=== PATIENT | female | born 1995 | race African-American/Black ===

== ENCOUNTER 2022-02-25 14:10 | Emergency (ER) | payer OTHER ==
[2022-02-25 14:24] VITALS: PULSE 92; RESP 18; TEMP 98.8
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
[2022-02-25 15:28] LABS: Amphetamine Screen,Urine Not Detected (NotDetected); Barbiturate Screen,Urine Not Detected (NotDetected); Benzodiazepines Screen,Urine Not Detected (NotDetected); Cocaine Screen,Urine Not Detected (NotDetected); Methadone Screen, Urine Not Detected (NotDetected); Opiate Screen,Urine Not Detected (NotDetected); Oxycodone Screen, Urine Not Detected (NotDetected); Phencyclidine Screen,Urine Not Detected (NotDetected); Tricyclic Antidepressant,Urine Not Detected (NotDetected); Urn Cannabinoid Scrn Not Detected (NotDetected)
[2022-02-25] MEDS ORDERED: ACETAMINOPHEN TAB 325 MG TAB PO STA (18:30)
[2022-02-25 23:33] VITALS: BP 145/90
== END 2022-02-25 23:37 | disposition home or self-care (01) ==
LOC: EC 14:10
DX: F32.A Depression, unspecified (principal); F41.9 Anxiety disorder, unspecified; F19.959 Other psychoactive substance use, unspecified with psychoactive substance-induced psychotic disorder, unspecified; F17.290 Nicotine dependence, other tobacco product, uncomplicated; J45.909 Unspecified asthma, uncomplicated; M79.7 Fibromyalgia; Z88.5 Allergy status to narcotic agent; Z91.010 Allergy to peanuts; Z79.899 Other long term (current) drug therapy
CPT/HCPCS: 80306; 82075; 99284